=== PATIENT | female | born 1975 | race African-American/Black ===

== ENCOUNTER 2018-11-24 12:41 | Emergency (ER) | payer SELFPAY ==
[2018-11-24] MEDS ORDERED: Metoprolol Tartrate 5 MG/5 ML VIAL ONE (13:00)
[2018-11-24 13:14] LABS: #Eosinphils 0.1 thou/uL (0.0-0.7); #Lymphocytes 3.6 thou/uL (1.20-3.40); #Monocytes 0.5 thou/uL (0.11-0.59); #Neutrophils 5.3 thou/uL (1.40-6.50); %Basophils 0.3 % (0.0-1.0); %Eosinophils 1.5 % (0.0-10.0); %Monocytes 5.2 % (0.0-10.0); %Neutrophils 55.1 % (42.0-75.0); Hemoglobin 11.9 g/dL (12.0-16.0); Mean Corpuscular HGB CONC 30.9 g/dL (32.0-36.0); Mean Corpuscular Hemoglobin 25.2 pg (27.0-31.0); Mean Corpuscular Volume 81.6 fL (78.0-98.0); Mean Platelet Volume 8.6 fL (7.4-10.4); Platelet Count 306 thou/uL (130-400); RBC Distribution Width 14.8 % (11.5-14.5); Red Blood Cell (RBC) Count 4.72 mill/uL (4.20-5.40); White Blood Cell (WBC) Count 9.6 thou/uL (4.8-10.8)
--- NOTE | 2018-11-24 13:14 | RAD ---
Exam: Chest one view portable: HISTORY: Chest pain COMPARISON: 06/13/2011 FINDINGS: Minimal cardiomegaly. No confluent pneumonia, overt edema, or pleural effusion. IMPRESSION: Cardiomegaly without other acute process. Some progression of the heart enlargement when compared to prior exam.
[2018-11-24 13:29] LABS: BHCG - Serum Negative (NEGATIVE); Pregs Control Background? CLEAR/WHITE (CLR/WHITE); Pregs Control Bar Appear? YES (CONTROL BAR)
[2018-11-24 13:37] LABS: ALT (SGPT) 8 U/L (8-55); AST (SGOT) 11 U/L (5-34); Albumin 3.9 g/dL (3.5-5.0); Alkaline Phosphatase 47 U/L (40-150); Anion Gap 12 mmol/L (10-20); BUN (Urea Nitrogen) 11 mg/dL (7.0-18.7); Bilirubin, Total 0.2 mg/dL (0.2-1.2); CK (CPK) 120 U/L (29-168); Calc. Creatinine Clearance 0 mL/min (70-130); Carbon Dioxide 21 mmol/L (22-29); Chloride 105 mmol/L (98-107); Estimated GFR-MDRD Greater than 90; Glucose 135 mg/dL (70-105); Lipase 12 U/L (8-78); Potassium 3.7 mmol/L (3.5-5.1); Protein, Total 6.9 g/dL (6.0-8.3); Sodium 134 mmol/L (136-145)
[2018-11-24] MEDS ORDERED: cloNIDine 0.1 MG TAB ONE (13:50)
[2018-11-24] MEDS ORDERED: hydrALAZINE 20 MG/ML VIAL ONE (15:18)
[2018-11-24] MEDS ORDERED: Metoprolol Tartrate 50 MG TAB ONE (15:57)
== END 2018-11-24 16:06 | disposition home or self-care (01) ==
LOC: ERS 12:41
DX: I10 Essential (primary) hypertension (principal); R07.89 Other chest pain; F17.210 Nicotine dependence, cigarettes, uncomplicated
CPT/HCPCS: 36415; 71045; 80053; 82550; 83690; 84484; 84703; 85025; 93005; 96374; 96375; J0360